=== PATIENT | female | born 1975 | race Two or more races ===

== ENCOUNTER 2020-12-08 12:15 | Outpatient (CLI) | payer SELFPAY | END 2020-12-08 23:59 | disposition home or self-care (01) | LOC: LAB 12:15 | PROVIDERS: ATTEND Internal Medicine Gastroenterology | DX: Z01.818 Encounter for other preprocedural examination (principal); Z20.822 Contact with and (suspected) exposure to COVID-19 | CPT/HCPCS: C9803; U0003 ==

== ENCOUNTER 2020-12-11 08:38 | Day surgery (SDC) | payer SELFPAY | END 2020-12-11 14:00 | disposition home or self-care (01) | LOC: DS 08:38 | PROVIDERS: ATTEND Internal Medicine Gastroenterology | DX: D50.9 Iron deficiency anemia, unspecified (principal); K31.89 Other diseases of stomach and duodenum | CPT/HCPCS: 43239; 45378; 71045; 84703; 88305; 88313; 88342; 93005; J2704; J3490; J7030 ==